=== PATIENT | male | born 1995 | race Caucasian/White ===

== ENCOUNTER 2016-06-21 12:23 | Emergency (ER) | payer MEDICAID, OTHER ==
[~2016-06-21] VITALS: Ht 180.3 cm; Wt 84.0 kg
[~2016-06-21 12:23] MED LIST: LOPE2CAP PO; PRED20TA PO
[2016-06-21 12:27] VITALS: Ht 180.3 cm; Wt 84.0 kg
[2016-06-21] MEDS ORDERED: FAMOTIDINE 20 MG TAB PO ONE (15:30)
[2016-06-21] MEDS ORDERED: predniSONE 20 MG TAB PO ONE (15:30)
[2016-06-21] MEDS ORDERED: LIDOCAINE/MYLANTA 40 ML BTL PO ONE (15:30)
[2016-06-21] MEDS ORDERED: PRED20TA PO (15:36)
[2016-06-21] MEDS ORDERED: OMEP20CA16 PO (15:36)
[2016-06-21 16:01] VITALS: BP 101/70; PULSE 74; RESP 16; TEMP 97.9
--- NOTE | 2016-06-22 21:05 | ERD ---
ER Documentation Chief Complaint Date/Time DATE: 06/22/16 TIME: 20:56 Chief Complaint UPPER AND LOWER ABD PAIN, HX OF CROHNS HPI This is a 21 year old male with relevant medical history for crohn's disease presents to ER with abdominal pain and refill of medication. Patient states he has generaized non-specific abdominal pain and had diarrhea 2 days ago. Patient states the diarrhea lasted 24hrs and has resolved prior to arrival to ED. Patient states he recently changed his health insurance and does not have a GI specialist. Patient is requestng refill of his prednisone medication. He has been prescribed this by ER staff in the past for diarrhea and abdominal pain symptoms. Patient states currently his pain is mild and rating it 1/10 to generalized abdomen. Describes pain as aching. Denies fevers or chills. Denies mucoid or bloody stools. Denies dark or tarry stools. ROS All systems reviewed and are negative except as per history of present illness. Medications Home Meds Active Scripts Omeprazole* (Omeprazole*) 20 Mg Capsule.dr, 20 MG PO DAILY, #10 Prov:LD VEGAS NP 06/21/16 Prednisone* (Prednisone*) 20 Mg Tab, 60 MG PO DAILY for 5 Days, TAB Prov:LD VEGAS NP 06/21/16 Loperamide Hcl* (Imodium*) 2 Mg Capsule, 2 MG PO .AFTER EA LOOSE BM Y for DIARRHEA, #10 TAB Prov:MARCO ISAAC PA-C 03/31/15 Prednisone* (Prednisone*) 20 Mg Tab, 60 MG PO DAILY for 5 Days, TAB Prov:MARCO ISAAC PA-C 03/31/15 Allergies Allergies: Coded Allergies: No Known Allergy (Unverified , 03/31/15) PMhx/Soc History of Surgery: No Anesthesia Reaction: No Hx Neurological Disorder: Yes Hx Respiratory Disorders: No Hx Cardiac Disorders: No Hx Psychiatric Problems: No Hx Miscellaneous Medical Probl: Yes (POOR LOWER EXTREMITY CIRCULATION, CROHN'S DISEASE) Hx Alcohol Use: No Hx Substance Use: No Hx Tobacco Use: Yes Smoking Status: Never smoker Physical Exam Vitals Vital Signs Date Time Temp Pulse Resp B/P Pulse Ox O2 Delivery O2 Flow Rate FiO2 06/21/16 16:01 97.9 74 16 101/70 99 06/21/16 12:27 98.3 64 16 118/68 99 Physical Exam Const: no acute distress, alert, smiling during exam. Head: Atraumatic Eyes: Normal Conjunctiva ENT: Normal External Ears, Nose and Mouth. Neck: Full range of motion..~ No meningismus. Resp: Clear to auscultation bilaterally Cardio: Regular rate and rhythm, no murmurs Abd: Soft, non tender, non distended. Normal bowel sounds Skin: No petechiae or rashes Back: No midline or flank tenderness Ext: No cyanosis, or edema Neur: Awake and alert Psych: Normal Mood and Affect Results 24 hrs Current Medications Medications (Trade) Dose Ordered Sig/Freida Route PRN Reason Start Time Stop Time Status Last Admin Dose Admin Famotidine (Pepcid) 20 mg ONCE ONCE PO 06/21/16 15:30 06/21/16 15:31 DC 06/21/16 15:25 Miscellaneous Medication (Gi Cocktail (2)) 40 ml ONCE ONCE PO 06/21/16 15:30 06/21/16 15:31 DC 06/21/16 15:26 Prednisone (Prednisone) 60 mg ONCE ONCE PO 06/21/16 15:30 06/21/16 15:31 DC 06/21/16 15:26 Procedures/MDM MDM: 21 year old male presents to ER with generalized, nonspecific abdominal pain with history of Crohn's disease. Patient believes this is a Crohn's flare and requesting prednisone refill. Patient given Pepcid PO, GI cocktail and prednisone PO while in the ED. Patient's vital signs are stable. Afebrile. No active vomiting or diarrhea while in the ER. Patient smiling and talkative during initial and subsequent abdominal exams. Non-bloody, non-mucoid stools. I doubt GI bleed or surgical abdomen due to physical exam and patient's vitals. Patient's differential diagnosis is Crohn's flare, viral gastroenteritis, peptic ulcer disease, gastritis, functional dyspepsia and gastroparesis. Patient appropriate for discharge home and will be discharged with prescription for prednisone and omeprazole. Resources provided for GI specialist. Instructed patient to return sooner for any new or worsening symptoms. Departure Diagnosis: Primary Impression: Abdominal pain Abdominal location: generalized Qualified Code: R10.84 - Generalized abdominal pain Condition: Stable Patient Instructions: Lifestyle Management of Crohn's Disease, Peptic Ulcer Disease (All Causes) Referrals: GENEVIEVE CHRISTIANSON MD, JOHN MD [facility] YOU HAVE RECEIVED A MEDICAL SCREENING EXAM AND THE RESULTS INDICATE THAT YOU DO NOT HAVE A CONDITION THAT REQUIRES URGENT TREATMENT IN THE EMERGENCY DEPARTMENT. FURTHER EVALUATION AND TREATMENT OF YOUR CONDITION CAN WAIT UNTIL YOU ARE SEEN IN YOUR DOCTORS OFFICE WITHIN THE NEXT 1-2 DAYS. IT IS YOUR RESPONSIBILITY TO MAKE AN APPOINTMENT FOR FOLOW-UP CARE. IF YOU HAVE A PRIMARY DOCTOR --you should call your primary doctor and schedule an appointment IF YOU DO NOT HAVE A PRIMARY DOCTOR YOU CAN CALL OUR PHYSICIAN REFERRAL HOTLINE AT IF YOU CAN NOT AFFORD TO SEE A PHYSICIAN YOU CAN CHOSE FROM THE FOLLOWING [facility] [address] [facility] [address] [facility] [facility] [address] [facility] [address] [facility] [address] [facility]. [facility] [address] [facility]. [facility] YOU HAVE RECEIVED A MEDICAL SCREENING EXAM AND THE RESULTS INDICATE THAT YOU DO NOT HAVE A CONDITION THAT REQUIRES URGENT TREATMENT IN THE EMERGENCY DEPARTMENT. FURTHER EVALUATION AND TREATMENT OF YOUR CONDITION CAN WAIT UNTIL YOU ARE SEEN IN YOUR DOCTORS OFFICE WITHIN THE NEXT 1-2 DAYS. IT IS YOUR RESPONSIBILITY TO MAKE AN APPOINTMENT FOR FOLOW-UP CARE. IF YOU HAVE A PRIMARY DOCTOR --you should call your primary doctor and schedule and appointment IF YOU DO NOT HAVE A PRIMARY DOCTOR YOU CAN CALL OUR PHYSICIAN REFERRAL HOTLINE AT . IF YOU CAN NOT AFFORD TO SEE A PHYSICIAN YOU CAN CHOSE FROM THE FOLLOWING [facility]: [facility] [address] [place] [address] [facility] [address] [place] [address] [facility] [address] [place] [address] Additional Instructions: Return to ED for any high fever, chest pain, difficulty breathing, shortness breath, wheezing, vomiting, diarrhea, abdominal pain or any new or worsening symptoms. Call your primary care doctor TOMORROW for an appointment during the next 2-3 days.See the doctor sooner or return here if your condition worsens before your appointment time. LD VEGAS NP June 22, 2016 21:05
== END 2016-06-21 16:01 | disposition home or self-care (01) ==
LOC: FTE 12:23
DX: R10.84 Generalized abdominal pain (principal); Z87.891 Personal history of nicotine dependence
CPT/HCPCS: J7512; Z7610; 99283

== ENCOUNTER 2016-10-30 13:19 | Emergency (ER) | payer MEDICAID ==
[~2016-10-30] VITALS: Ht 177.8 cm; Wt 87.0 kg
[~2016-10-30 13:19] MED LIST changes: +OMEP20CA16 PO
[2016-10-30 13:23] VITALS: Ht 177.8 cm; Wt 87.0 kg
[2016-10-30] MEDS ORDERED: ACETAMINOPHEN 500 MG TAB PO STA (14:39)
[2016-10-30] MEDS ORDERED: IBUPROFEN 600 MG TAB PO ONE (15:00)
[2016-10-30] MEDS ORDERED: IBUP-1542 PO (15:25)
[2016-10-30] MEDS ORDERED: AMO500 PO (15:25)
--- NOTE | 2016-10-30 15:30 | ERD ---
ER Documentation Chief Complaint Date/Time DATE: 10/30/16 TIME: 15:27 Chief Complaint CAME IN VIA INTAKE DUE TO LEFT EAR PAIN WITH FEVER HPI This is a 21-year-old male presents to the ER with fever, sore throat, left ear pain, nausea and fatigue that started this morning. Patient states that ear is throbbing and pain is severe. He denies any discharge from his ear. He denies a cough. There are no sick contacts at home. He has not traveled anywhere. ROS 12 point review of systems was done, all negative except per HPI. Medications Home Meds Active Scripts Ibuprofen* (Motrin*) 600 Mg Tab, 600 MG PO Q6, #30 TAB Prov:MERT SALGUERO 10/30/16 Amoxicillin* (Amoxicillin*) 500 Mg Cap, 500 MG PO BID for 10 Days, CAP Prov:MERT SALGUERO 10/30/16 Omeprazole* (Omeprazole*) 20 Mg Capsule.dr, 20 MG PO DAILY, #10 Prov:LD VEGAS NP 06/21/16 Prednisone* (Prednisone*) 20 Mg Tab, 60 MG PO DAILY for 5 Days, TAB Prov:LD VEGAS NP 06/21/16 Loperamide Hcl* (Imodium*) 2 Mg Capsule, 2 MG PO .AFTER EA LOOSE BM Y for DIARRHEA, #10 TAB Prov:MARCO ISAAC PA-C 03/31/15 Prednisone* (Prednisone*) 20 Mg Tab, 60 MG PO DAILY for 5 Days, TAB Prov:MARCO ISAAC PA-C 03/31/15 Allergies Allergies: Coded Allergies: No Known Allergy (Unverified , 03/31/15) PMhx/Soc Medical and Surgical Hx: pt denies Surgical Hx History of Surgery: No Anesthesia Reaction: No Hx Neurological Disorder: Yes Hx Respiratory Disorders: No Hx Cardiac Disorders: No Hx Psychiatric Problems: No Hx Miscellaneous Medical Probl: Yes (POOR LOWER EXTREMITY CIRCULATION, CROHN'S DISEASE) Hx Alcohol Use: No Hx Substance Use: No Hx Tobacco Use: Yes Smoking Status: Current some day smoker Physical Exam Vitals Vital Signs Date Time Temp Pulse Resp B/P Pulse Ox O2 Delivery O2 Flow Rate FiO2 10/30/16 13:23 100.2 97 18 131/68 97 Physical Exam GENERAL: The patient is well-developed, well-nourished, in no acute distress. NECK: Cervical spine is non tender with no step off. Supple, no nuchal rigidity HEENT: Atraumatic. Pupils equal, round and reactive to light. Extraocular muscles are grossly intact. Conjunctivae pink, no discharge.Left erythematous tympanic membrane. No TM perforation no TM bulging. No tragus tenderness, no discharge from the ear canal, no mastoid tenderness. . Tonsilar erythema with no exudates or uvular deviation. Clear rhinorrhea. RESPIRATORY: Clear to auscultation bilaterally. There are no rales, wheezes or rhonchi. HEART: Regular rate and rhythm. No murmurs, clicks, rubs or gallops. EXTREMITIES: No clubbing or cyanosis. Full range of motion. Grossly neurovascularly intact. NEUROLOGIC: Alert and oriented. Cranial nerves II through XII are intact. SKIN: There is no rash. The skin is warm and dry. Results 24 hrs Current Medications Medications (Trade) Dose Ordered Sig/Freida Route PRN Reason Start Time Stop Time Status Last Admin Dose Admin Acetaminophen (Tylenol Tab) 1,000 mg ONCE STAT PO 10/30/16 14:39 10/30/16 14:40 DC 10/30/16 14:55 Ibuprofen (Motrin) 600 mg ONCE ONCE PO 10/30/16 15:00 10/30/16 15:01 DC 10/30/16 14:55 Procedures/MDM This is a 21-year-old male presents to the ER with ear pain sore throat, fever since this morning. Patient likely has an upper respiratory infection and does have otitis media of his left ear. He will be sent home with amoxicillin and ibuprofen. Suspicion for strep throat, retropharyngeal abscess, peritonsillar abscess, mastoiditis, pneumonia is low. Patient has a low-grade fever in the ER which was controlled. He is well-appearing. Suspicion for meningitis or sepsis is low. Patient is to follow-up with this primary care doctor within 1- 2 days return to ER sooner if symptoms worsen. My medical decision making shared with the patient he understands and agrees with plan. Departure Diagnosis: Primary Impression: Otitis media Condition: Stable Patient Instructions: Otitis Media, Abx Tx (Adult) Additional Instructions: Call your primary care doctor TOMORROW for an appointment during the next 1-2 days.See the doctor sooner or return here if your condition worsens before your appointment time. MERT SALGUERO Oct 30, 2016 15:30
[2016-10-30 15:33] VITALS: BP 124/66; PULSE 93; RESP 18; TEMP 100
== END 2016-10-30 15:32 | disposition home or self-care (01) ==
LOC: FTE 13:19
DX: H66.92 Otitis media, unspecified, left ear (principal); F17.210 Nicotine dependence, cigarettes, uncomplicated
CPT/HCPCS: Z7502; Z7610; 99283